=== PATIENT | male | born 1950 | race African-American/Black ===

== ENCOUNTER 2021-01-14 15:43 | Emergency (ER) | payer MEDICARE, MEDICAID ==
[~2021-01-14] VITALS: Ht 182.9 cm; Wt 82.0 kg
[2021-01-14] MEDS ORDERED: SODIUM CHLORIDE 0.9% 1,000 ML IV ONE (17:15)
[2021-01-14] MEDS ORDERED: LORAZEPAM 2MG/ML CPJ IM ONE (17:15)
[2021-01-14] MEDS ORDERED: HALOPERIDOL LACTATE 5MG/ML VIAL IM ONE (17:15)
[2021-01-14 18:43] LABS: EOSINOPHILS % 3.6 % (0.0-5.0); HEMATOCRIT. 40.5 % (42.0-52.0); HEMOGLOBIN. 13.5 g/dL (14.0-18.0); LYMPHOCYTES % 20.2 % (20.0-50.0); MEAN CORPUSCULAR HEMOGLOBIN 27.3 pg (28.0-32.0); MEAN CORPUSCULAR VOLUME 82.2 fL (80.0-94.0); MEAN PLATELET VOLUME 7.8 fl (7.4-10.4); MONOCYTES % 6.6 % (2.0-8.0); NEUTROPHILS % 68.6 % (40.0-76.0); PLATELET 222 x1000/uL (130-400); RED BLOOD CELL COUNT 4.93 mill/uL (4.7-6.1); RED CELL DISTRIBUTION WIDTH 15.6 % (11.6-14.6)
[2021-01-14 18:50] LABS: CHLORIDE 108 mEq/L (98-107)
[2021-01-14 18:52] LABS: INR 1.1; PROTHROMBIN TIME 11.4 sec (9.6-11.0)
[2021-01-14 18:54] LABS: ETHANOL BLOOD 182 mg/dL
[2021-01-14 18:58] LABS: CLARITY URINE CLEAR (CLEAR); COLOR URINE YELLOW (YELLOW); KETONES URINE NEGATIVE (NEGATIVE); LEUKOCYTE ESTERASE URINE NEGATIVE (NEGATIVE); NITRITE URINE NEGATIVE (NEGATIVE); OCCULT BLOOD URINE TRACE (NEGATIVE); PH URINE 5.5 (4.5-8.0); PROTEIN URINE NEGATIVE (NEGATIVE); UROBILINOGEN URINE 0.2 E.U./dL (0.2-1.0)
[2021-01-14] MEDS ORDERED: CEFTRIAXONE 1 G PREMIX 50 ML IV NR (19:30)
[2021-01-14] MEDS ORDERED: AZITHROMYCIN 500MG/250ML 250 ML IV NR (19:30)
[2021-01-14] MEDS ORDERED: DOXY100C5 MT (23:11)
[2021-01-15 02:10] VITALS: BP 126/69
== END 2021-01-15 02:35 | disposition home or self-care (01) ==
LOC: ER 15:43
DX: F10.129 Alcohol abuse with intoxication, unspecified (principal); Y90.6 Blood alcohol level of 120-199 mg/100 ml; S00.81XA Abrasion of other part of head, initial encounter; Y08.89XA Assault by other specified means, initial encounter; Y93.89 Activity, other specified; Y92.9 Unspecified place or not applicable
CPT/HCPCS: 36415; 70450; 70486; 71045; 80053; 80320; 81003; 85025; 85610; 87040; 96361; 96365; 96366; 96368; 96372; 99285; J0456; J0696; J1630; J2060; J7030; G0480

== ENCOUNTER 2024-02-07 08:19 | Emergency (ER) | payer MEDICAID, MEDICARE ==
[~2024-02-07] VITALS: Ht 177.8 cm; Wt 86.0 kg
[~2024-02-07 08:19] MED LIST: DOXY100C5 MT
[2024-02-07 08:21] VITALS: O2SAT 95
[2024-02-07 09:12] LABS: BASOPHILS % 1.1 % (0.0-2.0); DIFFERENTIAL COMMENT 0; EOSINOPHILS % 8.5 % (0.0-5.0); HEMOGLOBIN. 13.5 g/dL (14.0-18.0); MEAN CORPUSCULAR HEMOGLOBIN 26.2 pg (28.0-32.0); MEAN CORPUSCULAR HGB CONC 30.8 g/dL (31.0-37.0); MEAN CORPUSCULAR VOLUME 85.3 fL (80.0-94.0); MEAN PLATELET VOLUME 7.4 fl (7.4-10.4); MONOCYTES % 8.2 % (2.0-8.0); NEUTROPHILS % 50.2 % (40.0-76.0); PLATELET 383 x1000/uL (130-400); RED BLOOD CELL COUNT 5.16 mill/uL (4.7-6.1); WHITE BLOOD COUNT 3.9 x1000/uL (4.5-11.0)
[2024-02-07 09:17] LABS: CARBON DIOXIDE 26 mEq/L (21-32); CHLORIDE 107 mEq/L (98-107); POTASSIUM 3.9 mEq/L (3.5-5.1); SODIUM 141 mEq/L (136-145)
[2024-02-07 09:18] LABS: CALCIUM 10.1 mg/dL (8.7-10.4)
[2024-02-07 09:23] LABS: CREATININE 1.1 mg/dL (0.6-1.3); GLUCOSE 85 mg/dL (70-105); UREA NITROGEN BLOOD 18 mg/dL (9-23)
[2024-02-07 14:25] VITALS: BP 150/78; PULSE 61; RESP 16; TEMP 37.16964; O2SAT 97
== END 2024-02-07 14:39 | disposition home or self-care (01) ==
LOC: ER 08:19
DX: Z00.00 Encounter for general adult medical examination without abnormal findings (principal); F10.20 Alcohol dependence, uncomplicated; Z98.890 Other specified postprocedural states; Y90.9 Presence of alcohol in blood, level not specified
CPT/HCPCS: 80048; 85025; 36415; 71045; 99284; Z7610